=== PATIENT | female | born 1945 | race Caucasian/White ===

== ENCOUNTER 2019-07-24 02:17 | Inpatient (IN) | payer MEDICAID ==
[2019-07-24] VITALS (35 sets, daily range): BP systolic 93–204; BP diastolic 42–91; PULSE 58–88; RESP 11–21; TEMP 97.1–99.8
[~2019-07-24] VITALS: Ht 165.1 cm; Wt 65.8 kg
[2019-07-24] MEDS ORDERED: PROPOFOL 1000 MG/100 ML 100 ML IV ONE ×3 (02:28→18:48)
[2019-07-24] MEDS ORDERED: METHYLPREDNISOLONE SOD SUCC 125MG/2ML VIAL ONE (02:32)
[2019-07-24] MEDS ORDERED: ALBUTEROL INHALER 90MCG/INH IH ONE (02:32)
[2019-07-24] MEDS ORDERED: ZOSYN 3.375GM+NS 50ML 50 ML IV ONE (02:32)
[2019-07-24] MEDS ORDERED: IPRATROPIUM/ALBUTEROL SULFATE 3 ML SOLUTION IH ONE (02:45)
[2019-07-24] MEDS ORDERED: FENTANYL CITRATE PF 50 MCG/1 ML 2ML VIAL ONE (02:55)
[2019-07-24] MEDS ORDERED: CALCIUM GLUCONATE 1 GM/10 ML VIAL IV ONE (04:58)
[2019-07-24] MEDS ORDERED: DEXTROSE 50%-WATER 50 ML DISP.SYRIN IV ONE (04:59)
[2019-07-24] MEDS ORDERED: INSULIN HUMULIN R 100 UNIT/ML 3ML ONE (05:01)
[2019-07-24] MEDS ORDERED: FENTANYL 1000MCG+NS 100ML IV.SOLN IV SCH (07:00)
[2019-07-24] MEDS ORDERED: MIDAZOLAM 50MG-0.9% NS 50ML 50 ML IV SCH (07:00)
[2019-07-24] MEDS ORDERED: VANCOMYCIN 1GM+NS 250ML 250 ML IV ONE (07:11)
--- NOTE | 2019-07-24 09:45 | NUR ---
PATIENT HAS ARRIVED FROM ER DEPARTMENT. PATIENT INTUBATED, MENA CATHETER INTACT, LEFT AND RIGHT CHEST TUBES INTACT. PATIENT SEDATED ON FENTANYL AND PROPOFOL IV DRIPS. PATIENT RESPONDS TO PAINFUL STIMULATION.
[2019-07-24] MEDS ORDERED: EPINEPHRINE 0.1 MG/ML 10 ML SYG IVP ONE (10:00)
[2019-07-24] MEDS ORDERED: ATROPINE SULFATE 0.1 MG/ML 10 ML SYG IVP ONE (10:00)
[2019-07-24] MEDS ORDERED: SODIUM BICARB 8.4% 50ML SYRINGE IVP ONE (10:00)
[2019-07-24] MEDS: ZOSYN 3.375GM+NS 50ML 50 ML IV SCH ×2 (10:12→18:12)
[2019-07-24] MEDS: SODIUM CHLORIDE 0.9% 1000ML 1,000 ML IV SCH (10:12)
[2019-07-24] MEDS: HEPARIN SODIUM 5000UNIT/ML 1ML VIAL SQ SCH ×2 (10:13→22:11)
[2019-07-24] MEDS ORDERED: VANCOMYCIN PROTOCOL PER PHARMACY IV SCH (11:15)
[2019-07-24] MEDS ORDERED: ETOMIDATE 2 MG/ML 10 ML VIAL IVP ONE (11:54)
[2019-07-24] MEDS: CHLORHEXIDINE GLUCONATE 473 ML MOUTHWASH MM SCH ×2 (12:11→22:13)
[2019-07-24] MEDS ORDERED: ROCURONIUM BROMIDE 10MG/1ML 5ML VL IV ONE (13:47)
[2019-07-24] MEDS ORDERED: GLUCAGON 1MG KIT 1 MG ML IM PRN (14:30)
[2019-07-24] MEDS ORDERED: POTASSIUM CHLORIDE 20 MEQ ERTAB PO PRN (14:30)
[2019-07-24] MEDS ORDERED: LIDOCAINE HCL-MPF 1% 2ML VIAL IV PRN (14:30)
[2019-07-24] MEDS ORDERED: DEXTROSE 50%-WATER 50 ML DISP.SYRIN IV PRN (14:30)
[2019-07-24] MEDS ORDERED: MAGNESIUM 2GM PREMIX 50ML 50 ML IV PRN (14:30)
[2019-07-24] MEDS: VANCOMYCIN 1GM+NS 250ML 250 ML IV SCH ×2 (15:05→23:07)
[2019-07-24] MEDS: INSULIN HUMULIN R 100 UNIT/ML 3ML SQ SCH ×2 (16:30→20:43)
[2019-07-24] MEDS: PROPOFOL 1000 MG/100 ML IV PRN (19:35)
[2019-07-24] MEDS: FAMOTIDINE/PF 20 MG/2 ML VIAL IV SCH (22:10)
[2019-07-25] VITALS (55 sets, daily range): BP systolic 91–130; BP diastolic 44–85; PULSE 72–105; RESP 11–30; TEMP 97.7–99.8
[2019-07-25] MEDS: ZOSYN 3.375GM+NS 50ML 50 ML IV SCH ×3 (02:21→17:42)
[2019-07-25] MEDS: INSULIN HUMULIN R 100 UNIT/ML 3ML SQ SCH ×4 (05:58→19:43)
[2019-07-25] MEDS: SODIUM CHLORIDE 0.9% 1000ML 1,000 ML IV SCH ×2 (06:15→18:36)
[2019-07-25] MEDS: IPRATROPIUM/ALBUTEROL SULFATE 3 ML SOLUTION IH PRN ×4 (06:32→18:39)
--- NOTE | 2019-07-25 07:20 | NUR ---
Patient moved from room 208 to room 207 for closer monitoring.
[2019-07-25] MEDS: METHYLPREDNISOLONE SOD SUCC 40MG/ML 1ML IVP SCH (08:38)
[2019-07-25] MEDS: FAMOTIDINE/PF 20 MG/2 ML VIAL IV SCH ×2 (08:38→21:30)
[2019-07-25] MEDS: HEPARIN SODIUM 5000UNIT/ML 1ML VIAL SQ SCH ×2 (10:16→21:32)
[2019-07-25] MEDS: CHLORHEXIDINE GLUCONATE 473 ML MOUTHWASH MM SCH ×2 (11:01→21:34)
[2019-07-25] MEDS: VANCOMYCIN 1GM+NS 250ML 250 ML IV SCH (11:43)
[2019-07-25] MEDS ORDERED: PHARMACY COMMUNICATION MISC SCH (17:00)
[2019-07-25] MEDS ORDERED: ROCURONIUM BROMIDE 10MG/1ML 5ML VL IV SCH (17:30)
--- NOTE | 2019-07-25 18:17 | NUR ---
Patient Power of claim attorney peter attempted to be contacted Made 16 attempts to contact family regarding central line placement as patient has poor peripheral IV access. Dr. Bingham at bedside went ahead with emergency central line access as family did not answer phone and patient was in need of iv access for sedation, fluids and antibiotics.
[2019-07-25] MEDS ORDERED: FENTANYL CITRATE PF 50 MCG/1 ML 2ML VIAL IVP PRN (18:30)
[2019-07-25] MEDS: PROPOFOL 1000 MG/100 ML IV PRN (18:36)
[2019-07-26] VITALS (40 sets, daily range): BP systolic 90–138; BP diastolic 31–80; PULSE 62–86; RESP 11–28; TEMP 97.7–98.8
[2019-07-26] MEDS: VANCOMYCIN 1GM+NS 250ML 250 ML IV SCH
[2019-07-26] MEDS: IPRATROPIUM/ALBUTEROL SULFATE 3 ML SOLUTION IH PRN (00:24)
[2019-07-26] MEDS: ZOSYN 3.375GM+NS 50ML 50 ML IV SCH ×3 (02:26→18:26)
[2019-07-26] MEDS: INSULIN HUMULIN R 100 UNIT/ML 3ML SQ SCH ×4 (05:12→20:36)
--- NOTE | 2019-07-26 06:32 | NUR ---
Potassium level 3.6. No replacement needed per Hypokalemia IV protocol.
[2019-07-26] MEDS: METHYLPREDNISOLONE SOD SUCC 40MG/ML 1ML IVP SCH (07:37)
[2019-07-26] MEDS: FAMOTIDINE/PF 20 MG/2 ML VIAL IV SCH ×2 (07:37→19:58)
[2019-07-26] MEDS: HEPARIN SODIUM 5000UNIT/ML 1ML VIAL SQ SCH ×2 (10:15→20:51)
[2019-07-26] MEDS: CHLORHEXIDINE GLUCONATE 473 ML MOUTHWASH MM SCH ×2 (11:32→20:52)
[2019-07-26] MEDS: FUROSEMIDE 10 MG/ML 2ML VIAL IV SCH (18:13)
--- NOTE | 2019-07-26 19:25 | NUR ---
D/C PLAN CM attempted to call elliotstef Vanegas Ansonmanjula to discuss d/c planning. No answer. CM reviewed medical record. Patient is from [facility]. Pt currently vented and DNR status. CM to f/u. Possible hospice candidate if no improvement. Addendum: 07/26/19 at 1927 by KISHA GOMEZ CM Amended: Links added.
[2019-07-27] VITALS (59 sets, daily range): BP systolic 100–138; BP diastolic 40–61; PULSE 57–97; RESP 14–42; TEMP 98.9–100.5
[2019-07-27] MEDS: ZOSYN 3.375GM+NS 50ML 50 ML IV SCH ×3 (00:50→17:39)
[2019-07-27] MEDS: POTASSIUM CHLORIDE 10% ELIXIR 20 MEQ/15 ML UDCUP PO PRN ×2 (05:38→09:25)
[2019-07-27] MEDS: FUROSEMIDE 10 MG/ML 2ML VIAL IV SCH (05:44)
[2019-07-27] MEDS: INSULIN HUMULIN R 100 UNIT/ML 3ML SQ SCH ×4 (05:44→23:45)
[2019-07-27] MEDS: METHYLPREDNISOLONE SOD SUCC 40MG/ML 1ML IVP SCH (09:26)
[2019-07-27] MEDS: FAMOTIDINE/PF 20 MG/2 ML VIAL IV SCH ×2 (09:26→21:25)
[2019-07-27] MEDS: VANCOMYCIN 1GM+NS 250ML 250 ML IV SCH (09:26)
[2019-07-27] MEDS: HEPARIN SODIUM 5000UNIT/ML 1ML VIAL SQ SCH ×2 (09:27→21:29)
--- NOTE | 2019-07-27 09:46 | NUR ---
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 Recommend Pivot 1.5 initiated at 20mls per hour for first 5 hours. Increase rate as tolerated by 5ml every 5 hours to goal Goal rate of 45mls/hr to provide 1620kcal, 101gm protein, 820ml free H2O. Recommend flushes: 150ml every 6 hours. Tube feeding order to be faxed to 2nd floor Pod B (ext [phone]). NUTRITION NOTE Pt intubated, OGT in place. Current tube feedings: Vital HP@40mls per hour (960kcal, 84gm protein, 803 free H2O). Hx of COPD, HTN, Dementia. MARY to continue to monitor. Addendum: 07/27/19 at [address] Amended: Links added.
--- NOTE | 2019-07-27 11:17 | NUR ---
FAMILY Sw spoke to Eveline at [facility]. Per Eveline, pt is her own decision maker, and only has Susy [phone] niece listed as ER contact. Per [facility], pt has never had any visitors. LU called niece and left message requesting call back as soon as possible. waiting on response.
--- NOTE | 2019-07-27 12:00 | NUR ---
[facility] CONSULT PATIENT ASSESSED REQUESTED: NO OPEN WOUNDS PRESENT, ONLY MULTIPLE DRY SCABS; REPORT GIVEN TO PATIENT'S NURSE LOUIS. Addendum: 07/27/19 at 1203 by RUSLAN HARVEY LVN Amended: Links added.
[2019-07-27] MEDS: CHLORHEXIDINE GLUCONATE 473 ML MOUTHWASH MM SCH (12:24)
--- NOTE | 2019-07-27 17:20 | NUR ---
Bronchoscopy Bronchoscopy with right mainstem lavage by Dr. Martinez. Pt tolerated well. RT present. ACLS RNs x2 present Etomodate 20mg iv given see vital sign record. Completed 1724.
[2019-07-27] MEDS: IPRATROPIUM/ALBUTEROL SULFATE 3 ML SOLUTION IH PRN (18:24)
[2019-07-28] VITALS (54 sets, daily range): BP systolic 101–147; BP diastolic 34–103; PULSE 55–109; RESP 11–28; TEMP 98.4–100
[2019-07-28] MEDS: CHLORHEXIDINE GLUCONATE 473 ML MOUTHWASH MM SCH ×3 (00:22→23:45)
[2019-07-28] MEDS: ZOSYN 3.375GM+NS 50ML 50 ML IV SCH ×3 (02:19→17:29)
[2019-07-28] MEDS: INSULIN HUMULIN R 100 UNIT/ML 3ML SQ SCH ×4 (07:30→21:00)
[2019-07-28] MEDS: VANCOMYCIN 1GM+NS 250ML 250 ML IV SCH (08:20)
[2019-07-28] MEDS: METHYLPREDNISOLONE SOD SUCC 40MG/ML 1ML IVP SCH (08:20)
[2019-07-28] MEDS: FAMOTIDINE/PF 20 MG/2 ML VIAL IV SCH ×2 (08:20→20:14)
[2019-07-28] MEDS: IPRATROPIUM/ALBUTEROL SULFATE 3 ML SOLUTION IH PRN (09:41)
[2019-07-28] MEDS: HEPARIN SODIUM 5000UNIT/ML 1ML VIAL SQ SCH ×2 (10:16→22:45)
[2019-07-28] MEDS ORDERED: FUROSEMIDE 10 MG/ML 4ML VIAL ONE ×2 (10:40→10:42)
[2019-07-28] MEDS: FUROSEMIDE 10 MG/ML 4ML VIAL IV SCH (10:45)
[2019-07-28] MEDS: ACETYLCYSTEINE 10% 100MG/ML 4ML VIAL IH SCH ×3 (13:06→23:15)
[2019-07-28] MEDS: IPRATROPIUM/ALBUTEROL SULFATE 3 ML SOLUTION IH SCH ×3 (13:06→23:15)
--- NOTE | 2019-07-28 13:11 | NUR ---
Case Management/[facility] Per case management, pt not eligible for [facility] due to Medicaid status. Dr. Martinez notified. Case management states will address discharge planning.
--- NOTE | 2019-07-28 14:00 | NUR ---
per REUBEN Diaz, patient was recently extubated this PM.Patient is not ready for skilled PT evaluation this PM.WILL ATTEMPT TO INITIATE PHYSICAL THERAPY Evaluation 07/29/2019. Addendum: 07/28/19 at 1452 by NADIA RAPHAEL, PT PT Amended: Links added.
--- NOTE | 2019-07-28 15:34 | NUR ---
GENA MARTINEZ RECEIVED [facility] FOR [facility]. CALLED SPOKE TO SHIRLEY SAID NO THEY DO NOT ACCEPT MEDICAID MACKEYBrian HANSON NP KNOW. Addendum: 07/28/19 at 1535 by LAKSHMI DÍAZ RN CM Amended: Links added.
[2019-07-29] VITALS (50 sets, daily range): BP systolic 95–138; BP diastolic 36–72; PULSE 76–111; RESP 13–60; TEMP 97.9–99.5
[2019-07-29] MEDS: ZOSYN 3.375GM+NS 50ML 50 ML IV SCH (02:26)
[2019-07-29] MEDS ORDERED: DiphenhydrAMINE HCL 50 MG/ML VIAL IV PRN (05:45)
[2019-07-29] MEDS: INSULIN HUMULIN R 100 UNIT/ML 3ML SQ SCH ×4 (05:47→21:00)
[2019-07-29] MEDS ORDERED: DiphenhydrAMINE HCL 50 MG/ML VIAL ONE (06:15)
[2019-07-29] MEDS: IPRATROPIUM/ALBUTEROL SULFATE 3 ML SOLUTION IH SCH (06:59)
[2019-07-29] MEDS: ACETYLCYSTEINE 10% 100MG/ML 4ML VIAL IH SCH ×4 (06:59→23:07)
[2019-07-29] MEDS: FAMOTIDINE/PF 20 MG/2 ML VIAL IV SCH ×2 (08:13→21:21)
[2019-07-29] MEDS: POTASSIUM CHLORIDE 20MEQ/100ML 100 ML IV PRN ×2 (08:13→10:25)
[2019-07-29] MEDS: LINEZOLID 600 MG/ISO-OSM 300 ML IV SCH ×2 (08:14→21:20)
[2019-07-29] MEDS: MEROPENEM 500 MG VIAL IVP SCH ×2 (08:16→16:18)
[2019-07-29] MEDS: HEPARIN SODIUM 5000UNIT/ML 1ML VIAL SQ SCH ×2 (08:17→21:24)
[2019-07-29] MEDS: FUROSEMIDE 10 MG/ML 4ML VIAL IV SCH (08:18)
[2019-07-29] MEDS ORDERED: METHYLPREDNISOLONE SOD SUCC 40MG/ML 1ML IVP SCH (09:00)
--- NOTE | 2019-07-29 09:00 | NUR ---
DYSPHAGIA EVAL COMPLETED +S/S OF ASPIRATION AT THIS TIME. RECOMMEND PUREED, NECTAR THICK LIQUIDS, AND PILLS CRUSHED WITH APPLESAUCE TOLERATED. RECOMMEND MBSS TO RULE OUT SILENT ASPIRATION. PAYROLL BENEFITS CLERK COORDINATED WITH NURSE WALKER OF CARE AND RECOMMENDATIONS. RECOMMENDATIONS: DYSPHAGIA THERAPY 3-5XWEEK TO INCREASE ORAL MOTOR STRENGTH AND PHARYNGEAL SWALLOW: LTG#1: Pt WILL TOLERATE LEAST RESTRICTIVE DIET TO MEET NUTRITION/HYDRATION WITH NO S/S OF ASPIRATION. LTG#2: SKILLED EDUCATION Pt/FAMILY/STAFF STG#1: Pt WILL PARTICIPATE IN LARYNGEAL ELEVATION/EXCURSION EXERCISES WITH 80% ACCURACY. STG#2: Pt WILL PARTICIPATE IN TONGUE BASE RETRACTION EXERCISES WITH 80% ACCURACY. STG#3: Pt WILL TOLERATE THERAPEUTIC TRIALS OF THIN LIQUID WITH NO OVERT S/S OF ASPIRATION. STG#4: SKILLED EDUCATION Pt/FAMILY/STAFF. Addendum: 07/29/[address] EMILI WOODALL Amended: Links added.
[2019-07-29] MEDS: IPRATROPIUM/ALBUTEROL SULFATE 3 ML SOLUTION IH PRN ×3 (11:13→23:07)
[2019-07-29] MEDS: CHLORHEXIDINE GLUCONATE 473 ML MOUTHWASH MM SCH ×2 (11:41→23:45)
[2019-07-30] VITALS (38 sets, daily range): BP systolic 100–136; BP diastolic 46–96; PULSE 43–111; RESP 15–54; TEMP 97.7–99.7
[2019-07-30] MEDS: MEROPENEM 500 MG VIAL IVP SCH ×3 (01:30→17:14)
[2019-07-30] MEDS: ACETYLCYSTEINE 10% 100MG/ML 4ML VIAL IH SCH ×3 (06:36→18:16)
[2019-07-30] MEDS: IPRATROPIUM/ALBUTEROL SULFATE 3 ML SOLUTION IH PRN ×3 (06:36→18:16)
[2019-07-30] MEDS: INSULIN HUMULIN R 100 UNIT/ML 3ML SQ SCH ×4 (07:30→21:00)
[2019-07-30] MEDS ORDERED: METHYLPREDNISOLONE SOD SUCC 40MG/ML 1ML IVP SCH (09:00)
[2019-07-30] MEDS: FAMOTIDINE/PF 20 MG/2 ML VIAL IV SCH ×2 (09:26→21:21)
[2019-07-30] MEDS: LINEZOLID 600 MG/ISO-OSM 300 ML IV SCH ×2 (09:28→21:21)
[2019-07-30] MEDS: HEPARIN SODIUM 5000UNIT/ML 1ML VIAL SQ SCH ×2 (09:29→21:29)
[2019-07-30] MEDS: FUROSEMIDE 10 MG/ML 4ML VIAL IV SCH (10:45)
[2019-07-30] MEDS: CHLORHEXIDINE GLUCONATE 473 ML MOUTHWASH MM SCH (11:45)
--- NOTE | 2019-07-30 12:30 | NUR ---
MBSS COMPLETED. NO ASPIRATION OR PENETRATION AT THIS TIME. RECOMMEND PUREED SOLIDS, THIN LIQUIDS, AND PILLS CRUSHED WITH APPLESAUCE TOLERATED. COMPENSATORY STRATEGIES: SMALL BITES/ SIPS, ALTERNATE BITES/SIPS, EXTRA DRY SWALLOWS, SIT UPRIGHT DURING AND 30 MINUTES AFTER MEALTIMES. EXTRACTIVE METALLURGIST REVIEWED RESULTS AND RECOMMENDATIONS WITH Pt AND NURSE MARQUEZ. RECOMMENDATIONS: DYSPHAGIA THERAPY 3-5XWEEK TO INCREASE ORAL MOTOR STRENGTH AND PHARYNGEAL SWALLOW: LTG#1: Pt WILL TOLERATE LEAST RESTRICTIVE DIET TO MEET NUTRITION/HYDRATION WITH NO S/S OF ASPIRATION. LTG#2: SKILLED EDUCATION Pt/FAMILY/STAFF STG#1: Pt WILL PARTICIPATE IN LARYNGEAL ELEVATION/EXCURSION EXERCISES WITH 80% ACCURACY. STG#2: Pt WILL PARTICIPATE IN TONGUE BASE RETRACTION EXERCISES WITH 80% ACCURACY. STG#3: Pt WILL PARTICIPATE IN ORAL MOTOR EXERCISES WITH 80% ACCURACY. STG#4: Pt WILL TOLERATE THERAPEUTIC TRIALS OF MECHANICAL SOFT/GROUND WITH NO OVERT S/S OF ASPIRATION. STG#5: Pt WILL BE ABLE TO PARTICIPATE IN MBSS AFTER 2-4 WEEKS OF THERAPEUTIC INTERVENTION. STG#6: SKILLED EDUCATION Pt/FAMILY/STAFF. Addendum: 07/30/[address] EMILI WOODALL Amended: Links added.
--- NOTE | 2019-07-30 14:01 | NUR ---
CONSULT OF DR. MCKEON CONSULT CALLED TO OFFICE AT 1400
--- NOTE | 2019-07-30 15:35 | NUR ---
RD FOLLOW UP Pt is s/p extubation, Pneumothorax with Chest tube in place, as per EMR. Pt tolerating Heart healthy, Puree, NTL diet order with no report of GI distress, Fair PO intake. Elevated BG 262. BLE 2+/BUE 3+ Pitting edema. Recommend 75gm CC diet modification Recommend 60mL ProMod QD. RD to continue to monitor. Please notify as additional nutrition concerns arise. Thank you. Addendum: 07/30/19 at [address] Amended: Links added.
[2019-07-31] VITALS (15 sets, daily range): BP systolic 106–149; BP diastolic 49–74; PULSE 50–114; RESP 14–24; TEMP 96.4–99.3
[2019-07-31] MEDS: ACETYLCYSTEINE 10% 100MG/ML 4ML VIAL IH SCH ×5 (00:28→23:20)
[2019-07-31] MEDS: IPRATROPIUM/ALBUTEROL SULFATE 3 ML SOLUTION IH PRN ×5 (00:28→23:20)
[2019-07-31] MEDS: MEROPENEM 500 MG VIAL IVP SCH ×3 (00:42→17:50)
[2019-07-31] MEDS: INSULIN HUMULIN R 100 UNIT/ML 3ML SQ SCH ×4 (06:49→21:00)
[2019-07-31] MEDS: FAMOTIDINE/PF 20 MG/2 ML VIAL IV SCH ×2 (09:07→21:17)
[2019-07-31] MEDS: LINEZOLID 600 MG/ISO-OSM 300 ML IV SCH ×2 (09:07→22:17)
--- NOTE | 2019-07-31 09:15 | NUR ---
FOLLOW UP COMPLETED. MONOGRAM TECHNICIAN COORDINATED WITH NURSE WALTER GIRALDO. Pt TOLERATING DIET RECOMMENDATIONS WITH NO S/S OF ASPIRATION AT THIS TIME. CONTINUE WITH PLAN OF CARE TOLERATED. Addendum: 07/31/[address]I WOODALL Amended: Links added.
[2019-07-31] MEDS: HEPARIN SODIUM 5000UNIT/ML 1ML VIAL SQ SCH ×2 (11:34→21:39)
--- NOTE | 2019-07-31 16:45 | NUR ---
PT REPORT WAS GIVEN TO BOAZ GRACIA RN AND PT WILL BE TRANSFERRED IN BED TO ROOM 419.
[2019-08-01] VITALS (13 sets, daily range): BP systolic 92–142; BP diastolic 51–113; PULSE 66–111; RESP 18–24; TEMP 97.5–99.5
--- NOTE | 2019-08-01 00:10 | NUR ---
PT O2 83%. PT IS ALERT. STATES SHE FEELS FINE. PT WAS PLACED IN HIGH FOWLERS. OXYGEN INCREASED TO 5LPM. O2 VERIFIED ON HAND FINGERS AND EAR. RT CALLED. MARGARETH RT ASSESSED PT. PLACED ON VENTI MASK FOR COMFORT. PT IS NOW AT 97% O2. PT STATES NO SOB OR CONCERNS. SHE SAYS SHE WANTS TO BE LEFT TO SLEEP. CONTINUOUS O2 MONITORING IN PLACE. NO DISTRESS NOTED.
[2019-08-01] MEDS: MEROPENEM 500 MG VIAL IVP SCH ×3 (01:14→16:36)
--- NOTE | 2019-08-01 04:00 | NUR ---
PT WOKE UP CONFUSED. IS DEMANDING SHE BE TRANSFERRED TO ROOM 201. EXPLAINED THAT SHE IS NOW IN 4TH FLOOR. AND 2N FLOOR IS A COVID UNIT. INSISTS ON BEING TRANSFERRED. GIVES NO REASON TO WHY.PT THEN UNDERSTOOD CANNOT BE SENT OUT.
[2019-08-01] MEDS: ACETYLCYSTEINE 10% 100MG/ML 4ML VIAL IH SCH ×2 (06:22→11:38)
[2019-08-01] MEDS: INSULIN HUMULIN R 100 UNIT/ML 3ML SQ SCH ×4 (06:23→20:45)
[2019-08-01] MEDS: IPRATROPIUM/ALBUTEROL SULFATE 3 ML SOLUTION IH PRN ×3 (06:23→18:41)
[2019-08-01] MEDS: FAMOTIDINE/PF 20 MG/2 ML VIAL IV SCH ×2 (09:48→21:10)
[2019-08-01] MEDS: HEPARIN SODIUM 5000UNIT/ML 1ML VIAL SQ SCH ×2 (09:53→23:26)
[2019-08-01] MEDS: LINEZOLID 600 MG/ISO-OSM 300 ML IV SCH ×2 (11:23→21:10)
[2019-08-01] MEDS: FUROSEMIDE 10 MG/ML 4ML VIAL IV SCH (16:36)
[2019-08-02] VITALS (12 sets, daily range): BP systolic 107–142; BP diastolic 50–95; PULSE 89–106; RESP 18–21; TEMP 97.5–99.2
[2019-08-02] MEDS: MEROPENEM 500 MG VIAL IVP SCH ×3 (00:35→16:54)
[2019-08-02] MEDS: FUROSEMIDE 10 MG/ML 4ML VIAL IV SCH ×2 (02:45→13:56)
[2019-08-02] MEDS: IPRATROPIUM/ALBUTEROL SULFATE 3 ML SOLUTION IH PRN ×4 (06:06→23:34)
[2019-08-02] MEDS: INSULIN HUMULIN R 100 UNIT/ML 3ML SQ SCH ×4 (07:30→21:00)
[2019-08-02] MEDS: FAMOTIDINE/PF 20 MG/2 ML VIAL IV SCH ×2 (09:31→22:08)
[2019-08-02] MEDS: LINEZOLID 600 MG/ISO-OSM 300 ML IV SCH ×2 (09:32→22:08)
[2019-08-02] MEDS: HEPARIN SODIUM 5000UNIT/ML 1ML VIAL SQ SCH ×2 (09:38→22:11)
[2019-08-02] MEDS: FLUCONAZOLE 100 MG TAB PO SCH (13:55)
[2019-08-03] VITALS (10 sets, daily range): BP systolic 115–155; BP diastolic 56–95; PULSE 90–104; RESP 16–24; TEMP 97.5–98.4
[2019-08-03] MEDS: MEROPENEM 500 MG VIAL IVP SCH ×3 (01:42→17:01)
[2019-08-03] MEDS: FUROSEMIDE 10 MG/ML 4ML VIAL IV SCH (01:42)
[2019-08-03] MEDS: IPRATROPIUM/ALBUTEROL SULFATE 3 ML SOLUTION IH PRN ×3 (06:27→19:05)
[2019-08-03] MEDS: INSULIN HUMULIN R 100 UNIT/ML 3ML SQ SCH ×4 (06:39→20:20)
[2019-08-03] MEDS: HEPARIN SODIUM 5000UNIT/ML 1ML VIAL SQ SCH ×2 (09:21→23:10)
[2019-08-03] MEDS: FLUCONAZOLE 100 MG TAB PO SCH (09:22)
[2019-08-03] MEDS: FAMOTIDINE/PF 20 MG/2 ML VIAL IV SCH ×2 (09:22→20:10)
[2019-08-03] MEDS: LINEZOLID 600 MG/ISO-OSM 300 ML IV SCH ×2 (09:48→20:09)
--- NOTE | 2019-08-03 13:28 | NUR ---
TREATMENT COMPLETED. MEAL OBSERVATION COMPLETED. Pt TOLERATING PUREED, THIN LIQUIDS. TEST BORER REVIEWED SAFE SWALLOW PRECAUTIONS WITH MINIMUM CUES. Pt INDEPENDENTLY FEEDING AT THIS TIME. NO OVERT S/S OF ASPIRATION DURING THE MEAL. RECOMMEND CONTINUED PUREED, THIN LIQUIDS A THIS TIME. TEST BORER COORDINATED WITH NURSE LAMB AT THIS TIME. Addendum: 08/03/19 at 1332 by PHILIPP APONTE, [facility] ST Amended: Links added.
--- NOTE | 2019-08-03 15:00 | NUR ---
RD FOLLOW UP Pt tolerating current diet order with no report of GI distress. Fair PO intake and able to eat independently. Pt the tachypnea as per EMR. CBW decrease to 66kg. Recommend 60mL ProMod QD Recommend 500mg Vitamin C BID RD to continue to monitor. Please notify RD as additional nutrition concerns arise. Thank you. Addendum: 08/03/19 at [address] Amended: Links added.
--- NOTE | 2019-08-03 15:31 | NUR ---
CM NOTE/ROSELIA BETHANY, CONRADO GARCIA, CALLED IN REGARDS TO DC PLANNING. PER BETHANY, OK TO RETURN TO [facility] ONCE MEDICALLY CLEARED. ROSELIA FILLED FOR [facility]. PENDING MD ORDER FOR SNF RECOMMENDATIONS, PRIMARY NURSE, ADONIS ALEXIS, AWARE.
[2019-08-03] MEDS: FUROSEMIDE 10 MG/ML 2ML VIAL IV SCH (20:10)
[2019-08-04] VITALS (16 sets, daily range): BP systolic 125–179; BP diastolic 62–103; PULSE 85–102; RESP 16–36; TEMP 97.6–98.9
[2019-08-04] MEDS: IPRATROPIUM/ALBUTEROL SULFATE 3 ML SOLUTION IH PRN ×5 (00:28→23:12)
[2019-08-04] MEDS: MEROPENEM 500 MG VIAL IVP SCH ×3 (02:13→17:57)
[2019-08-04] MEDS: INSULIN HUMULIN R 100 UNIT/ML 3ML SQ SCH ×4 (07:30→21:00)
--- NOTE | 2019-08-04 08:00 | NUR ---
PT AAO X 3 , REVIEW PLAN OF CARE, HOB UP. ON 4 LITER NC, PT AT TIME GET CONFUSED REGARDING CARE AND ENVIROMENT . .SETUP FOR BREAKFAST . RISK OF ASPIRATION AND FALL RISK BED ALARMS ON . PT HAS A SPECIAL BED , FOR CARE.
--- NOTE | 2019-08-04 09:00 | NUR ---
HOLD TREATMENT Pt ON BIPAP AT THIS TIME. NO FOOD OR LIQUID PROVIDED. BUSINESS CENTER MANAGER COORDINATED WITH NURSE ALVARADO. BUSINESS CENTER MANAGER WILL CONTINUE TO FOLLOW Pt. Addendum: 08/04/19 at 1149 by PHILIPP APONTE, SPT ST Amended: Links added.
--- NOTE | 2019-08-04 09:30 | NUR ---
PT ABG'S . RESULTS FOLLOW , AT 4 LITER NC PH OF 7.48 PCOS 46.8 PO2 OF 46.8 HCO3 39.3 O2 SAT OF 84.9 . PT WAS PLACED VAL\CK ON HER BIPAP MASK, . PLACEMENT WAS AGREE PER PT. AND EDUCATIONS OF TODAY ABG'S RESULTS AND BIPAP. MASK PLACEMENT HOB UP RR OF 20'S O2 SAT OF 94%
[2019-08-04] MEDS: LINEZOLID 600 MG/ISO-OSM 300 ML IV SCH ×2 (09:59→21:20)
[2019-08-04] MEDS: FAMOTIDINE/PF 20 MG/2 ML VIAL IV SCH ×2 (10:00→21:20)
[2019-08-04] MEDS: FUROSEMIDE 10 MG/ML 2ML VIAL IV SCH ×2 (10:00→21:20)
[2019-08-04] MEDS: FLUCONAZOLE 100 MG TAB PO SCH (10:03)
[2019-08-04] MEDS: HEPARIN SODIUM 5000UNIT/ML 1ML VIAL SQ SCH ×2 (10:05→21:22)
--- NOTE | 2019-08-04 12:06 | NUR ---
CM NOTE/[facility] NOT IN NETWORK NEW ORDER FOR [facility] FROM [facility]. BEAR HERRING TRIMMER TAILER MADE AWARE THAT LT[facility] IS NOT IN NETWORK WITH MEDICAID [facility]. PRIMARY NURSE, CHRISTIANO ALEXIS, ALSO MADE AWARE. PER TRIMMER TAILER, WILL SPEAK TO MD REGARDING NEW DC RECOMMENDATIONS.
[2019-08-04] MEDS: SODIUM CHLORIDE 0.9% 10 ML VIAL IV SCH ×2 (21:20→21:21)
--- NOTE | 2019-08-04 21:20 | NUR ---
MEDS SHIFT ASSESSMENT DONE, PLEASE REFER TO CHART. PT IS VERY SLEEPY BUR OPENS HER EYES AND ACKNOWLEDGES AUTOPSY PATHOLOGIST. DUE MEDS ADMINISTERED, TOLERATED WELL. KEPT ON SEMI-KOHLI'S POSITION. O2 AT 4LPM VIA NC WITH O2 SAT=95%. KEPT COMFORTABLE. WILL MONITOR PT. Addendum: 08/05/19 at 0007 by SOPHIA CHAMPION RN RN Amended: Links added.
--- NOTE | 2019-08-04 23:30 | NUR ---
O2 RT, FAITH, IN TO GIVE BREATHING TREATMENT AND WAS ABOUT TO PLACE PT ON BIPAP BUT PT GOT MAD AND REFUSED BIPAP. KEPT PT ON O2 AT 4LPM VIA NC. O2 SAT=97% AT THIS TIME.
[2019-08-05] VITALS (10 sets, daily range): BP systolic 136–171; BP diastolic 89–100; PULSE 90–113; RESP 18–22; TEMP 97.6–98.7
--- NOTE | 2019-08-05 00:30 | NUR ---
REFUSED PT'S O2 SAT DROPPED TO THE 80'S. WAS ABOUT TO PLACE PT ON THE BIPAP BUT SHE WOKE UP AND REFUSED. PT CLAIMS SHE IS BREATHING JUST FINE. PT'S O2 SAT INCREASED TO 94% AFTER PT BREATHED THROUGH HER NOSE. KEPT ON 4LPM VIA NC. ORAL CARE DONE. REMINDED PT TO BREATH THROUGH HER NOSE AND NOT HER MOUTH. WILL MONITOR PT.
[2019-08-05] MEDS: MEROPENEM 500 MG VIAL IVP SCH ×3 (00:38→17:38)
--- NOTE | 2019-08-05 01:25 | NUR ---
ROUNDS PT RESTING WELL, FAIRLY ASLEEP. O2 SAT MAINTAINING AT 98%. IV ANTIBIOTICS FINISHED AND SALINE LOCKED CENTRAL LINE. WILL MONITOR PT.
[2019-08-05] MEDS: SODIUM CHLORIDE 0.9% 10 ML VIAL IV SCH ×6 (04:09→20:41)
--- NOTE | 2019-08-05 05:10 | NUR ---
DRAW ADA CONSERVATION ENGINEER, IN TO DO CHEST X-RAY. PT DENIES ANY CONCERNS AT THIS TIME. BLOOD DRAWN FROM CENTRAL LINE AND SPECIMEN GIVEN TO MOTOR VEHICLE OPERATOR ROAD SUPERVISOR. ALL PORTS 3 OF CENTRAL LINE FLUSHES GOOD WITH GOOD BLOOD RETURN. ALL PORTS OF PICC LINE ARE HARD TO FLUSH AND NO BLOOD DRAW. KEPT COMFORTABLE WITH HOB ELEVATED. FOR MORE CARE.
[2019-08-05] MEDS: INSULIN HUMULIN R 100 UNIT/ML 3ML SQ SCH ×4 (06:12→20:41)
[2019-08-05] MEDS: IPRATROPIUM/ALBUTEROL SULFATE 3 ML SOLUTION IH PRN ×3 (06:23→23:18)
--- NOTE | 2019-08-05 08:20 | NUR ---
FOLLOW UP Pt EATING BREAKFAST INDEPENDENTLY AT THIS TIME WITH TRAY SET UP. Pt SEATED AT 90 DEGREES. Pt WITH SLOW RATE AND NO OVERT S/S OF ASPIRATION. SPO2 REMAINED ABOVE 90 DURING P.O. NO OVERT S/S OF ASPIRATION. NO CONCERNS FROM NURSE AT THIS TIME. ADVERTISING INSERTER WILL CONTINUE TO FOLLOW Pt. Addendum: 08/06/19 at 0822 by PHILIPP APONTE, [facility] ST Amended: Links added.
[2019-08-05] MEDS: FAMOTIDINE/PF 20 MG/2 ML VIAL IV SCH ×2 (08:59→20:40)
[2019-08-05] MEDS: FUROSEMIDE 10 MG/ML 2ML VIAL IV SCH ×2 (09:09→20:39)
[2019-08-05] MEDS: HEPARIN SODIUM 5000UNIT/ML 1ML VIAL SQ SCH ×2 (09:22→20:55)
[2019-08-05] MEDS: FLUCONAZOLE 100 MG TAB PO SCH (10:19)
[2019-08-05] MEDS: LINEZOLID 600 MG/ISO-OSM 300 ML IV SCH ×2 (10:20→20:40)
[2019-08-05] MEDS ORDERED: ALTEPLASE 2 MG/VIAL IVCATH SCH (12:15)
--- NOTE | 2019-08-05 14:02 | NUR ---
CM NOTE/DCP [facility] NEW ORDER FOR RETURN TO [facility] AT [facility]. CLINICAL PACKET FAXED TO [facility], PENDING CONFIRMATION RECEIVED. NON EMERGENCY TRANSFER REQUEST FAXED TO [facility], PENDING RESPONSE. PER EZRA AT [facility], WILL REVIEW CLINICAL PACKET. POSSIBLE DC TO [facility] TODAY PER HELP DESK COORDINATOR FOR [facility].
[2019-08-06] VITALS (13 sets, daily range): BP systolic 129–162; BP diastolic 71–109; PULSE 89–108; RESP 17–28; TEMP 97.6–98.9
[2019-08-06] MEDS: MEROPENEM 500 MG VIAL IVP SCH ×2 (03:09→10:03)
[2019-08-06] MEDS: SODIUM CHLORIDE 0.9% 10 ML VIAL IV SCH ×3 (03:09→19:45)
[2019-08-06] MEDS: INSULIN HUMULIN R 100 UNIT/ML 3ML SQ SCH ×3 (05:55→20:44)
[2019-08-06] MEDS: IPRATROPIUM/ALBUTEROL SULFATE 3 ML SOLUTION IH PRN ×3 (06:33→23:32)
--- NOTE | 2019-08-06 09:10 | NUR ---
CM NOTE/JAVIER KU PER EZRA AT [place], OK FOR RESIDENT TO RETURN TO [facility]. PENDING REMOVAL OF EITHER CENTRAL LINE OR PICC LINE. DCP TO [facility] TODAY VIA EMS, PENDING DC ORDERS.
[2019-08-06] MEDS: LINEZOLID 600 MG/ISO-OSM 300 ML IV SCH ×2 (10:03→20:30)
[2019-08-06] MEDS: FUROSEMIDE 10 MG/ML 2ML VIAL IV SCH ×2 (10:04→20:32)
[2019-08-06] MEDS: FLUCONAZOLE 100 MG TAB PO SCH (10:04)
[2019-08-06] MEDS: FAMOTIDINE/PF 20 MG/2 ML VIAL IV SCH ×2 (10:04→20:32)
[2019-08-06] MEDS: HEPARIN SODIUM 5000UNIT/ML 1ML VIAL SQ SCH ×2 (10:22→20:44)
--- NOTE | 2019-08-06 15:06 | NUR ---
RD FOLLOW UP Pt with Heart Healthy, [place], 6small meal diet order in place. 60mL ProMod QD. Poor/Fair PO intake. LBM 08/04/19. BUE 4+ Pitting edema. Alb 1.6. Recommend 1200mL Fluid Restriction Recommend Ensure QD RD to continue to monitor. Please notify as additional nutrition concerns arise. Thank you. Addendum: 08/06/19 at [address] Amended: Links added.
--- NOTE | 2019-08-06 18:00 | NUR ---
NOTIFIED JAVIER PT. WOULD NOT BE GOING TODAY.SPOKE TO ELIZABETH QUIÑONEZ, HAD GIVEN REPORT T MS. QUIÑONEZ EARLIER AND MED. RECORD HAS BEEN FAXED.
--- NOTE | 2019-08-06 18:31 | NUR ---
PAGEKenia HERRING, PT. WITH A LO`T OF WHEEZES. SOB. ON VENT MASK AT 35%. PT. HAS ORDERS TO BE DISCHARGED TO [facility] IN [place] AND MAY WANT TO HOLD DC UNTIL AM.
[2019-08-07] VITALS (8 sets, daily range): BP systolic 110–173; BP diastolic 60–81; PULSE 80–89; RESP 16–28; TEMP 97.5–98.5
[2019-08-07] MEDS: MEROPENEM 500 MG VIAL IVP SCH ×3 (01:59→17:45)
[2019-08-07] MEDS: INSULIN HUMULIN R 100 UNIT/ML 3ML SQ SCH ×3 (05:47→16:30)
[2019-08-07] MEDS: IPRATROPIUM/ALBUTEROL SULFATE 3 ML SOLUTION IH PRN (06:24)
[2019-08-07] MEDS: LINEZOLID 600 MG/ISO-OSM 300 ML IV SCH (08:51)
[2019-08-07] MEDS: FLUCONAZOLE 100 MG TAB PO SCH (08:52)
[2019-08-07] MEDS: FUROSEMIDE 10 MG/ML 2ML VIAL IV SCH (08:52)
[2019-08-07] MEDS: FAMOTIDINE/PF 20 MG/2 ML VIAL IV SCH (08:52)
[2019-08-07] MEDS ORDERED: FUROSEMIDE 10 MG/ML 4ML VIAL IV SCH (09:16)
[2019-08-07] MEDS: HEPARIN SODIUM 5000UNIT/ML 1ML VIAL SQ SCH (10:15)
--- NOTE | 2019-08-07 16:36 | NUR ---
report given to mague chacon of [facility].
--- NOTE | 2019-08-07 16:47 | NUR ---
call ems that patient ready to be last picker
== END 2019-08-07 18:00 | DRG 720 ==
LOC: EDH 02:17 → EDHIP 02:18 → 2BH 09:41 → 4CH 07-31 17:55
PROVIDERS: ADMIT Internal Medicine Critical Care Medicine; ATTEND Internal Medicine Critical Care Medicine
PROC: 5A12012 Performance of Cardiac Output, Single, Manual (ICD-10-PCS; principal; 2019-07-24)
PROC: 5A1955Z Respiratory Ventilation, Greater than 96 Consecutive Hours (ICD-10-PCS; 2019-07-24)
PROC: 0BH17EZ Insertion of Endotracheal Airway into Trachea, Via Natural or Artificial Opening (ICD-10-PCS; 2019-07-24)
PROC: 5A12012 Performance of Cardiac Output, Single, Manual (ICD-10-PCS; 2019-07-24)
PROC: 0W9930Z Drainage of Right Pleural Cavity with Drainage Device, Percutaneous Approach (ICD-10-PCS; 2019-07-24)
PROC: 0B9D8ZZ Drainage of Right Middle Lung Lobe, Via Natural or Artificial Opening Endoscopic (ICD-10-PCS; 2019-07-27)
PROC: 5A09357 Assistance with Respiratory Ventilation, Less than 24 Consecutive Hours, Continuous Positive Airway Pressure (ICD-10-PCS; 2019-07-28)
PROC: 5A09357 Assistance with Respiratory Ventilation, Less than 24 Consecutive Hours, Continuous Positive Airway Pressure (ICD-10-PCS; 2019-07-28)
PROC: 02HV33Z Insertion of Infusion Device into Superior Vena Cava, Percutaneous Approach (ICD-10-PCS; 2019-07-28)
PROC: B548ZZA Ultrasonography of Superior Vena Cava, Guidance (ICD-10-PCS; 2019-07-28)
PROC: 5A09357 Assistance with Respiratory Ventilation, Less than 24 Consecutive Hours, Continuous Positive Airway Pressure (ICD-10-PCS; 2019-07-29)
PROC: 5A09357 Assistance with Respiratory Ventilation, Less than 24 Consecutive Hours, Continuous Positive Airway Pressure (ICD-10-PCS; 2019-07-31)
PROC: 5A09357 Assistance with Respiratory Ventilation, Less than 24 Consecutive Hours, Continuous Positive Airway Pressure (ICD-10-PCS; 2019-08-01)
PROC: 5A09357 Assistance with Respiratory Ventilation, Less than 24 Consecutive Hours, Continuous Positive Airway Pressure (ICD-10-PCS; 2019-08-02)
PROC: 5A09357 Assistance with Respiratory Ventilation, Less than 24 Consecutive Hours, Continuous Positive Airway Pressure (ICD-10-PCS; 2019-08-04)
PROC: 5A09357 Assistance with Respiratory Ventilation, Less than 24 Consecutive Hours, Continuous Positive Airway Pressure (ICD-10-PCS; 2019-08-06)
PROC: 5A09357 Assistance with Respiratory Ventilation, Less than 24 Consecutive Hours, Continuous Positive Airway Pressure (ICD-10-PCS; 2019-08-07)
DX: A41.9 Sepsis, unspecified organism (principal); I46.9 Cardiac arrest, cause unspecified; J69.0 Pneumonitis due to inhalation of food and vomit; J96.21 Acute and chronic respiratory failure with hypoxia; R65.21 Severe sepsis with septic shock; G93.1 Anoxic brain damage, not elsewhere classified; I50.33 Acute on chronic diastolic (congestive) heart failure; E44.0 Moderate protein-calorie malnutrition; J93.9 Pneumothorax, unspecified; T79.7XXA Traumatic subcutaneous emphysema, initial encounter; F03.90 Unspecified dementia, unspecified severity, without behavioral disturbance, psychotic disturbance, mood disturbance, and anxiety; J96.22 Acute and chronic respiratory failure with hypercapnia; E04.1 Nontoxic single thyroid nodule; J44.9 Chronic obstructive pulmonary disease, unspecified; G47.00 Insomnia, unspecified; E03.9 Hypothyroidism, unspecified; M40.209 Unspecified kyphosis, site unspecified; K31.4 Gastric diverticulum; F34.1 Dysthymic disorder; E87.3 Alkalosis; Z66 Do not resuscitate; E87.6 Hypokalemia; N39.0 Urinary tract infection, site not specified; B96.89 Other specified bacterial agents as the cause of diseases classified elsewhere; Y95 Nosocomial condition; D64.9 Anemia, unspecified; D72.823 Leukemoid reaction; E66.9 Obesity, unspecified; E87.0 Hyperosmolality and hypernatremia; I11.0 Hypertensive heart disease with heart failure; N19 Unspecified kidney failure; R53.81 Other malaise; Z20.828 Contact with and (suspected) exposure to other viral communicable diseases; Z68.24 Body mass index [BMI] 24.0-24.9, adult; Z88.1 Allergy status to other antibiotic agents; Z88.8 Allergy status to other drugs, medicaments and biological substances; Z91.048 Other nonmedicinal substance allergy status; Z74.01 Bed confinement status; Z79.899 Other long term (current) drug therapy